=== PATIENT | female | born 1965 | race Caucasian/White ===

== ENCOUNTER 2023-08-26 14:59 | Inpatient (IN) ==
[2023-08-26] MEDS ORDERED: ZOFRAN INJ 4 MG VIAL IVP PRN (16:35)
[2023-08-26 17:02] LABS: BASOPHILS # (AUTO) 0.1 X10^3/uL (0.0-0.1); BASOPHILS % (AUTO) 0.7 % (0.2-1.0); EOSINOPHILS % (AUTO) 0.1 % (0.9-2.9); HEMOGLOBIN 14.7 g/dL (12.0-16.0); LYMPHOCYTES # (AUTO) 3.3 X10^3/uL (1.3-2.9); LYMPHOCYTES % (AUTO) 17.1 % (21.0-51.0); MEAN CORPUSCULAR HEMOGLOBIN 30.9 pg (27.0-34.0); MEAN CORPUSCULAR HGB CONC 32.6 g/dL (33.0-35.0); MEAN CORPUSCULAR VOLUME 94.8 fL (80.0-100.0); MEAN PLATELET VOLUME 8.8 fL (7.4-11.0); MONOCYTES # (AUTO) 1.4 x10^3/uL (0.3-0.8); MONOCYTES % (AUTO) 7.3 % (0.0-13.0); NEUTROPHILS # (AUTO) 14.4 x10^3/uL (2.2-4.8); NEUTROPHILS % (AUTO) 74.8 % (42.0-75.0); PLATELET COUNT 303 X10^3/uL (150.0-450.0); RED BLOOD COUNT 4.75 X10^6/uL (3.5-5.4); RED CELL DISTRIBUTION WIDTH 15.7 % (11.6-16.5); WHITE BLOOD COUNT 19.2 X10^3/uL (3.6-10.0)
[2023-08-26 17:15] LABS: ALANINE AMINOTRANSFERASE 39 Units/L (12-78); ALBUMIN 3.3 g/dL (3.4-5.0); ALKALINE PHOSPHATASE 126 Units/L (46-116); BLOOD UREA NITROGEN 32 mg/dL (7-18); CALCIUM 9.4 mg/dL (8.5-10.1); CARBON DIOXIDE 28.3 mmol/L (21-32); CHLORIDE 102 mmol/L (98-107); COR NA(FOR HYPERGLY) 140 mmol/L (136-145); CREATININE 1.06 mg/dL (0.55-1.02); GLUCOSE 186 mg/dL (65-99); MAGNESIUM 1.6 mg/dL (2.0-2.9); SODIUM 138 mmol/L (136-145); TOTAL PROTEIN 7.4 g/dL (6.4-8.2); eGFR NON BLACK RACES 57 (>60)
[2023-08-26 17:32] LABS: ASPARTATE AMINO TRANSFERASE < 6 Units/L (15-37)
[2023-08-26 17:33] VITALS: BMI 39.6
[2023-08-26] MEDS: NS 1,000 ML IV 1,000 ML IV SCH (18:24)
[2023-08-26] MEDS: ROBITUSSIN DM PO SCH (18:25)
[2023-08-26] MEDS: SOLU-Medrol 40 MG VIAL IVP SCH (18:25)
[2023-08-26] MEDS: PROTONIX INJ 40 MG VIAL IVP SCH (18:25)
[2023-08-26] MEDS: ZITHROMAX INJ 500 MG VIAL 500 MG in NS 250 ML IV 250 ML IV SCH (18:25)
[2023-08-26] MEDS: PULMICORT NEB TX 0.5 MG NEB SCH (21:32)
[2023-08-26] MEDS: DUONEB 0.5 MG/3 MG (3 mL) NEB SCH (21:32)
[2023-08-26 23:58] LABS: BILIRUBIN,URINE NEGATIVE (NEGATIVE); BLOOD/HEMOGLOBIN,URINE NEGATIVE (NEGATIVE); GLUCOSE, URINE 4+ (NEGATIVE); KETONES,URINE NEGATIVE (NEGATIVE); LEUKOCYTE ESTERASE ,URINE NEGATIVE (NEGATIVE); NITRITES,URINE NEGATIVE (NEGATIVE); PROTEIN,URINE 2+ (NEGATIVE); UROBILINOGEN,URINE NORMAL (NORMAL)
[2023-08-27 00:05] LABS: APPEARANCE,URINE CLEAR (CLEAR); BACTERIA,URINE TRACE /HPF (NEGATIVE); COLOR,URINE YELLOW (YELLOW); HYALINE CASTS, URINE FEW /LPF (NEGATIVE); RBC,URINE NONE SEEN /HPF (0-3); SQUAMOUS EPITHELIAL CELL,UR FEW /HPF (NEGATIVE)
[2023-08-27 06:29] LABS: BASOPHILS # (AUTO) 0.2 X10^3/uL (0.0-0.1); HEMATOCRIT 44.3 % (36.0-47.0); HEMOGLOBIN 14.3 g/dL (12.0-16.0); LYMPHOCYTES # (AUTO) 1.7 X10^3/uL (1.3-2.9); MEAN CORPUSCULAR HEMOGLOBIN 30.6 pg (27.0-34.0); MEAN CORPUSCULAR HGB CONC 32.4 g/dL (33.0-35.0); MEAN CORPUSCULAR VOLUME 94.6 fL (80.0-100.0); MEAN PLATELET VOLUME 9.2 fL (7.4-11.0); MONOCYTES # (AUTO) 0.4 x10^3/uL (0.3-0.8); MONOCYTES % (AUTO) 2.7 % (0.0-13.0); NEUTROPHILS # (AUTO) 13.4 x10^3/uL (2.2-4.8); NEUTROPHILS % (AUTO) 85.3 % (42.0-75.0); PLATELET COUNT 264 X10^3/uL (150.0-450.0); RED BLOOD COUNT 4.68 X10^6/uL (3.5-5.4); RED CELL DISTRIBUTION WIDTH 15.4 % (11.6-16.5); WHITE BLOOD COUNT 15.7 X10^3/uL (3.6-10.0)
[2023-08-27 06:53] LABS: ALANINE AMINOTRANSFERASE 46 Units/L (12-78); ALBUMIN 3.1 g/dL (3.4-5.0); ALKALINE PHOSPHATASE 120 Units/L (46-116); ASPARTATE AMINO TRANSFERASE 18 Units/L (15-37); BLOOD UREA NITROGEN 28 mg/dL (7-18); CALCIUM 9.2 mg/dL (8.5-10.1); CARBON DIOXIDE 24.4 mmol/L (21-32); CHLORIDE 101 mmol/L (98-107); COR CA(FOR HYPOALB) 9.9 mg/dL (8.5-10.1); COR NA(FOR HYPERGLY) 141 mmol/L (136-145); GLUCOSE 211 mg/dL (65-99); POTASSIUM 4.3 mmol/L (3.5-5.1); SODIUM 138 mmol/L (136-145); TOTAL PROTEIN 7.4 g/dL (6.4-8.2); eGFR NON BLACK RACES > 60 (>60)
--- NOTE | 2023-08-27 07:40 | RAD ---
EXAM:AP chestHISTORY:COPDCOMPARISON:08/25/2023 br.br.br.br developing pneumonia, CHF, atelectasis or pleural fluid.IMPRESSION:No change, no acute findings.THIS IS AN ELECTRONICALLY VERIFIED FINAL REPORT08/27/2023 7:37 AM - Electronically signed by Hilario Delgado MD
[2023-08-27 07:43] LABS: PLATELET MORPHOLOGY COMMENT NORMAL (NORMAL)
[2023-08-27] MEDS ORDERED: ZITHROMAX INJ 500 MG VIAL IV ONE (09:39)
[2023-08-27] MEDS: TORADOL 30 MG VIAL IVP SCH (10:54)
[2023-08-27] MEDS: SOLU-Medrol 40 MG VIAL IVP SCH (10:54)
[2023-08-27] MEDS: LEVAQUIN PREMIX IV 750 MG 750 MG/150 ML BAG IV SCH (10:54)
[2023-08-27] MEDS: FORTAZ or TAZICEF VIAL INJ 1 G in NS 100 ML IV 100 ML IV SCH (10:54)
[2023-08-27] MEDS: TUSSIONEX PENNKINETIC SUSP PO SCH (10:55)
[2023-08-27] MEDS: PULMICORT NEB TX 0.5 MG NEB ONE (10:56)
[2023-08-27] MEDS: DUONEB 0.5 MG/3 MG (3 mL) NEB ONE (10:56)
--- NOTE | 2023-08-27 18:31 | DR.H&P ---
H&P - History & Physical for Day of: H&P Date: 08/26/23 - Chief Complaint Chief Complaint: COUGH, SOB - History of Present Illness History of Present Illness: IS A 58 YEAR OLD PATIENT OF [facility]. SHE WAS A DIRECT ADMIT TO SERVICES FOR TREATMENT OF COPD EXACERBATION, ACUTE BRONCHITIS, FAILED OUTPATIENT TREATMENT. PATIENT REPORTS THAT SHE HAS TAKEN DOXYCYCLINE 100MG BID, LEVAQUIN 500MG DAILY, MEDROL DOSEPACK, TESSALON PERLES, AND NEBULIZER TREATMENTS WITHOUT IMPROVEMENT IN SYMPTOMS. HER MEDICAL HX INCLUDEHTN, COPD, ARTHRITIS, DM II, HYPOTHYROIDISM, DEPRESSION, CHOLECYSTECTOMY, NECK FUSION, BLADDER SLING. ON ARRIVAL TO THE HOSPITAL, VITALS WERE: 97.5-116-24-95%-208/98. LABS WERE OBTAINED. WBC 19.2, RBC 4.75, HGB 14.7, HCT 45.0, PLT COUNT 303, D-DIMER 0.40, SODIUM 138, POTASSIUM 4.0, CHLORIDE 102, BUN 32, CREATININE 1.06, GLUCOSE 186, CALCIUM 9.4, MAGNESIUM 1.6, TOTAL BILI 0.30, AST <6, ALT 39, ALK PHOS 126, TOTAL PROTEIN 7.4, ALBUMIN 3.3. AIT RESPIRATORY PANEL WAS SENT OFF. A URINALYSIS WAS OBTAINED AND WAS UNREMARKABLE. A CHEST XRAY WAS OBTAINED AND WAS NEGATIVE FOR ACUTE FINDINGS. ON ADMISSION, SHE WAS STARTED ON NORMAL SALINE AT 50 ML/HR, LEVAQUIN 750MG IV DAILY, FORTAZ 1G IV Q8H, DUONEBS Q4H, PULMICORT NEBS BID, TUSSIONEX 5ML Q12H, ROBITUSSIN DM 10ML QID, SOLU-MEDROL 80MG IV Q8H, TORADOL 30MG IV Q8H PRN, ZOFRAN 4MG IV Q6H PRN, PROTONIX 40MG IV DAILY. WE WILL RESUME HER HOME MEDICATIONS OF FERROUS SULFATE, CELEXA, LEVOTHYROXINE, TIZANIDINE PRN, METFORMIN, MELOXICAM. OTHERWISE, WE PLAN TO FOLLOW-UP WITH AM LABS AND CHEST XRAY AND CONTINUE TO MONITOR. TIME SPENT ON CLINICAL ASSESSMENT, REVIEWING LABS AND IMAGING, DECISION MAKING, AND DOCUMENTATION GREATER THAN 75 MINUTES. - Past Medical History Past Medical History: Arthritis, COPD, Depression, Diabetes, Hypertension, Hypothyroidism - Past Surgical History Surgical History: Cholecystectomy Additional Surgical History: NECK FUSION, BLADDER SLING - Family History Family Medical History: Cancer - Social History Type of Tobacco Use: Smokeless Alcohol Use: None Drug Use: None - Review of Systems Constitutional: Weakness Eyes: No Symptoms Reported ENT: No Symptoms Reported Respiratory: Cough, Shortness of Breath, SOB with Excertion Cardiovascular: No Symptoms Reported Gastrointestinal: No Symptoms Reported Genitourinary: No Symptoms Reported Musculoskeletal: No Symptoms Reported Skin: No Symptoms Reported Neurological: Weakness - Physical Exam Vital Signs: Vital Signs Temperature 97.7 F Temperature 97.6 F Pulse Rate [Left Radial] 92 Pulse Rate [Left Radial] 93 Respiratory Rate 22 Respiratory Rate 20 Respiratory Rate 24 Respiratory Rate 22 Respiratory Rate 22 Blood Pressure [Right Arm] 185/87 Blood Pressure [Right Arm] 178/78 O2 Sat by Pulse Oximetry 94 O2 Sat by Pulse Oximetry 91 Oriented: Normal Eyes: Normal Ear: Normal Nose: Normal Throat: Normal Respiratory: Rhonchi Throughout, Wheezes Throughout Cardiovascular: Tachycardia : Normal Auscultation: Bowel Sounds: Normal Palpation: Normal Tenderness: Normal Skin: Normal Musculoskeletal: Normal Psychiatric: Normal Mood Description: Calm Affect: Normal Speech Pattern: Clear - Assessment/Plan (1) COPD exacerbation Status: Acute Plan: ADMIT, NORMAL SALINE AT 50 ML/HR, LEVAQUIN 750MG IV DAILY, FORTAZ 1G IV Q8H, DUONEBS Q4H, PULMICORT NEBS BID, TUSSIONEX 5ML Q12H, ROBITUSSIN DM 10ML QID,SOLU-MEDROL 80MG IV Q8H, TORADOL 30MG IV Q8H PRN, ZOFRAN 4MG IV Q6H PRN, PROTONIX 40MG IV DAILY. WE WILL RESUME HER HOME MEDICATIONS OF FERROUS SULFATE, CELEXA, LEVOTHYROXINE, TIZANIDINE PRN, METFORMIN, MELOXICAM. (2) Acute bronchitis Qualifiers: Bronchitis organism: unspecified organism Qualified Code(s): J20.9 - Acute bronchitis, unspecified Status: Acute (3) Hypomagnesemia Status: Acute (4) HTN (hypertension) Qualifiers: Hypertension type: primary hypertension Qualified Code(s): I10 - Essential (primary) hypertension Status: Chronic (5) Diabetes mellitus Qualifiers: Diabetes mellitus type: type 2 Diabetes mellitus complication status: with hyperglycemia Status: Chronic (6) Hypothyroidism Qualifiers: Hypothyroidism type: acquired Qualified Code(s): E03.9 - Hypothyroidism, unspecified Status: Chronic - Allergies Allergies/Adverse Reactions: Allergies Allergy/AdvReac Type Severity Reaction Status Date / Time aspirin AdvReac Verified 08/26/23 17:34 - Medications Home Medications: Home Medications Medication Instructions Recorded Confirmed albuterol sulfate 90 mcg/actuation 1 inh inhalation Q4-6H PRN 08/26/23 08/26/23 breath activated powder inhaler benzonatate 100 mg capsule 100 mg PO TID PRN cough 08/26/23 08/26/23 budesonide 160 mcg-glycopyr 9 2 inh inhalation BID 08/26/23 08/26/23 mcg-formot 4.8 mcg/actuation HFA inhaler (Breztri Aerosphere) cholecalciferol (vitamin D3) 1,250 1,250 mcg PO QWEEK 08/26/23 08/26/23 mcg (50,000 unit) capsule citalopram 40 mg tablet (Celexa) 40 mg PO QDAY 08/26/23 08/26/23 doxycycline hyclate 100 mg capsule 100 mg PO BID 08/26/23 08/26/23 ferrous sulfate 325 mg (65 mg 325 mg PO QDAY 08/26/23 08/26/23 iron) tablet fluticasone 250 mcg-salmeterol 50 1 ea inhalation BID 08/26/23 08/26/23 mcg/dose blistr powdr for inhalation fluticasone 250 mcg-salmeterol 50 1 inh inhalation BID 08/26/23 08/26/23 mcg/dose blistr powdr for inhalation (Advair Diskus) levofloxacin 500 mg tablet 500 mg PO QDAY 08/26/23 08/26/23 levothyroxine 100 mcg tablet 100 mcg PO QDAY 08/26/23 08/26/23 meloxicam 15 mg tablet 15 mg PO QDAY 08/26/23 08/26/23 metformin 500 mg tablet 500 mg PO QDAY 08/26/23 08/26/23 methylprednisolone 4 mg tablets in 0 mg PO DIRECTED 08/26/23 08/26/23 a dose pack tizanidine 2 mg tablet 2 mg PO Q6HR 08/26/23 08/26/23
[2023-08-27] MEDS ORDERED: GLUCOPHAGE ONE (20:33)
[2023-08-27] MEDS: MOBIC TAB 15 MG PO SCH (20:40)
[2023-08-27] MEDS: GLUCOPHAGE PO SCH (20:40)
[2023-08-27] MEDS: NovoLIN R (or HumuLIN R) SUBCUT PRN (22:33)
--- NOTE | 2023-08-28 00:27 | EKG ---
Test Reason : bp Blood Pressure : */* mmHG Vent. Rate : 85 BPM Atrial Rate : 86 BPM P-R Int : 184 ms QRS Dur : 80 ms QT Int : 346 ms P-R-T Axes : 86 51 59 degrees QTc Int : 411 ms Normal sinus rhythm Normal ECG No previous ECGs available Confirmed by Thomas Stiles MD ([id number]) on 08/29/2023 7:34:56 AM Referred By: Confirmed By: Thomas Stiles MD
[2023-08-28] MEDS: CATAPRES TAB 0.1 MG PO ONE ×2 (00:34→16:45)
[2023-08-28] MEDS: APRESOLINE INJ 20 MG VIAL IVP ONE (02:58)
[2023-08-28 07:02] LABS: BASOPHILS # (AUTO) 0.1 X10^3/uL (0.0-0.1); BASOPHILS % (AUTO) 0.6 % (0.2-1.0); EOSINOPHILS % (AUTO) 0.1 % (0.9-2.9); HEMATOCRIT 38.7 % (36.0-47.0); HEMOGLOBIN 12.6 g/dL (12.0-16.0); LYMPHOCYTES # (AUTO) 1.3 X10^3/uL (1.3-2.9); LYMPHOCYTES % (AUTO) 7.9 % (21.0-51.0); MEAN CORPUSCULAR HEMOGLOBIN 30.6 pg (27.0-34.0); MEAN CORPUSCULAR HGB CONC 32.6 g/dL (33.0-35.0); MONOCYTES # (AUTO) 0.8 x10^3/uL (0.3-0.8); MONOCYTES % (AUTO) 4.8 % (0.0-13.0); NEUTROPHILS # (AUTO) 14.3 x10^3/uL (2.2-4.8); NEUTROPHILS % (AUTO) 86.6 % (42.0-75.0); PLATELET COUNT 233 X10^3/uL (150.0-450.0); RED BLOOD COUNT 4.12 X10^6/uL (3.5-5.4); RED CELL DISTRIBUTION WIDTH 15.5 % (11.6-16.5); WHITE BLOOD COUNT 16.5 X10^3/uL (3.6-10.0)
[2023-08-28 07:29] LABS: ALANINE AMINOTRANSFERASE 39 Units/L (12-78); ALBUMIN 2.6 g/dL (3.4-5.0); ALKALINE PHOSPHATASE 103 Units/L (46-116); ASPARTATE AMINO TRANSFERASE 11 Units/L (15-37); BLOOD UREA NITROGEN 40 mg/dL (7-18); CALCIUM 8.6 mg/dL (8.5-10.1); CARBON DIOXIDE 21.6 mmol/L (21-32); CHLORIDE 105 mmol/L (98-107); COR CA(FOR HYPOALB) 9.7 mg/dL (8.5-10.1); COR NA(FOR HYPERGLY) 144 mmol/L (136-145); CREATININE 1.01 mg/dL (0.55-1.02); GLUCOSE 281 mg/dL (65-99); POTASSIUM 4.2 mmol/L (3.5-5.1); SODIUM 140 mmol/L (136-145); TOTAL PROTEIN 6.1 g/dL (6.4-8.2); eGFR NON BLACK RACES 60 (>60)
[2023-08-28 08:17] LABS: PLATELET MORPHOLOGY COMMENT NORMAL (NORMAL)
--- NOTE | 2023-08-28 08:43 | RAD ---
EXAM:CHEST, 1 VIEWHISTORY:Shortness of breath.COMPARISON:08/26/2023.FINDINGS:Th e trachea is midline. The cardiac silhouette is within normal limits . The lungs are clear without focal infiltrate or effusion. The bony thorax is unremarkable. There has been previous ACDF.IMPRESSION:No acute cardiopulmonary findings.THIS IS AN ELECTRONICALLY VERIFIED FINAL REPORT08/28/2023 8:40 AM - Electronically signed by Miguel Beck MD
[2023-08-28] MEDS ORDERED: GLUCOPHAGE ONE (08:58)
[2023-08-28] MEDS: CELEXA PO SCH (09:12)
[2023-08-28] MEDS: SYNTHROID 100 mcg TAB PO SCH (09:12)
[2023-08-28] MEDS: FERROUS GLUCONATE PO SCH (09:13)
[2023-08-28] MEDS: CARDIZEM CD 120 MG 24-HR PO SCH (10:15)
[2023-08-28] MEDS: SNACK - Diabetic Appropriate PO SCH (20:00)
[2023-08-28] MEDS: TORADOL 30 MG VIAL IVP PRN (22:04)
--- NOTE | 2023-08-29 06:08 | RAD ---
EXAM:CHEST, 1 VIEWHISTORY:sob, copd;COMPARISON:Prior study or studies were utilized for comparison during interpretation with the most relevant dated 08/28/2023TECHNIQUE:CHEST, 1 VIEWFINDINGS:Chest:Lines and tubes: NoneMediastinum: Cardiac and mediastinal shadow is within normal limits for size and contour.Pulmonary vessels: No pulmonary vascular congestion.Lung davis: No suspicious airspace opacity.Pleura: No effusion. No pneumothorax.Bones and soft tissues: No acute osseous or soft tissue abnormality.IMPRESSION:1. No acute cardiopulmonary abnormalityTHIS IS AN ELECTRONICALLY VERIFIED FINAL REPORT08/29/2023 6:05 AM - Electronically signed by Vishal Corley MD
[2023-08-29 06:34] LABS: BASOPHILS # (AUTO) 0.1 X10^3/uL (0.0-0.1); BASOPHILS % (AUTO) 0.5 % (0.2-1.0); HEMATOCRIT 38.3 % (36.0-47.0); HEMOGLOBIN 12.5 g/dL (12.0-16.0); LYMPHOCYTES # (AUTO) 0.8 X10^3/uL (1.3-2.9); LYMPHOCYTES % (AUTO) 5.2 % (21.0-51.0); MEAN CORPUSCULAR HEMOGLOBIN 30.8 pg (27.0-34.0); MEAN CORPUSCULAR HGB CONC 32.6 g/dL (33.0-35.0); MEAN CORPUSCULAR VOLUME 94.4 fL (80.0-100.0); MEAN PLATELET VOLUME 9.1 fL (7.4-11.0); MONOCYTES # (AUTO) 0.6 x10^3/uL (0.3-0.8); MONOCYTES % (AUTO) 3.7 % (0.0-13.0); NEUTROPHILS # (AUTO) 14.4 x10^3/uL (2.2-4.8); NEUTROPHILS % (AUTO) 90.6 % (42.0-75.0); PLATELET COUNT 229 X10^3/uL (150.0-450.0); RED BLOOD COUNT 4.05 X10^6/uL (3.5-5.4); RED CELL DISTRIBUTION WIDTH 15.9 % (11.6-16.5); WHITE BLOOD COUNT 15.9 X10^3/uL (3.6-10.0)
[2023-08-29 06:51] LABS: ALANINE AMINOTRANSFERASE 40 Units/L (12-78); ALBUMIN 2.5 g/dL (3.4-5.0); ALKALINE PHOSPHATASE 92 Units/L (46-116); ASPARTATE AMINO TRANSFERASE 14 Units/L (15-37); BLOOD UREA NITROGEN 43 mg/dL (7-18); CARBON DIOXIDE 24.3 mmol/L (21-32); CHLORIDE 105 mmol/L (98-107); COR NA(FOR HYPERGLY) 144 mmol/L (136-145); CREATININE 1.05 mg/dL (0.55-1.02); GLUCOSE 318 mg/dL (65-99); POTASSIUM 4.4 mmol/L (3.5-5.1); SODIUM 139 mmol/L (136-145); TOTAL PROTEIN 5.9 g/dL (6.4-8.2); eGFR NON BLACK RACES 57 (>60)
[2023-08-29 06:56] LABS: CALCIUM 8.5 mg/dL (8.5-10.1); COR CA(FOR HYPOALB) 9.7 mg/dL (8.5-10.1)
[2023-08-29 07:54] LABS: PLATELET MORPHOLOGY COMMENT NORMAL (NORMAL)
[2023-08-29] MEDS ORDERED: CONSULT PHARMACY - POTASSIUM & MAGNESIUM XX SCH (08:00)
[2023-08-29] MEDS ORDERED: GLUCOPHAGE ONE (08:01)
--- NOTE | 2023-08-29 08:36 | PCM.PROG ---
Progress Note - Progress Note for Day of Date of Exam: 08/28/23 - Subjective Subjective: IS CURRENTLY OBSERVATION STATUS FOR TREATMENT OF COPD EXACERBATION, ACUTE BRONCHITIS, HYPOMAGNESEMIA. HER MEDICAL HX INCLUDES: HTN, COPD, ARTHRITIS, DM II, HYPOTHYROIDISM, DEPRESSION, CHOLECYSTECTOMY, NECK FUSION, BLADDER SLING. TODAY, SHE IS LYING IN BED WITH EYES CLOSED ON MORNING ROUNDS. SHE AWAKENS TO VERBAL STIMULI. SHE CONTINUES TO COMPLAIN OF COUGH AND SHORTNESS OF BREATH AT TIMES, BUT ADMITS TO SLIGHT IMPROVEMENT SINCE ADMISSION. ON EXAMINATION, HEART IS REGULAR IN RATE AND RHYTHM. BILATERAL LUNGS ARE NOTED WITH RHONCHI AND WHEEZING THROUGHOUT. ABDOMEN IS ROUND, SOFT, AND NON-TENDER WITH NORMAL BOWEL SOUNDS NOTED IN ALL QUADRANTS. GOOD RANGE OF MOTION NOTED TO UPPER AND LOWER EXTREMITIES WITH NO EDEMA NOTED. HER VITALS THIS MORNING ARE: 97.8-93-24-95%-193/92. LABS WERE OBTAINED. WBC 16.5, RBC 4.12, HGB 12.6, HCT 38.7, PLT COUNT 233, SODIUM 140, POTASSIUM 4.2, CHLORIDE 105, BUN 40, CREATININE 1.01, GLUCOSE 281, CALCIUM 8.6, MAGNESIUM 1.7, TOTAL BILI 0.20, AST 11, ALT 39, ALK PHOS 103, TOTAL PROTEIN 6.1, ALBUMIN 2.6. AIT RESPIRATORY PANEL IS PENDING. A CHEST XRAY WAS OBTAINED AND REVEALED: The trachea is midline. The cardiac silhouette is within normal limits . The lungs are clear without focal infiltrate or effusion. The bony thorax is unremarkable. There has been previous ACDF. SHE IS CURRENTLY RECEIVING NORMAL SALINE AT 50 ML/HR, LEVAQUIN 750MG IV DAILY, FORTAZ 1G IV Q8H, DUONEBS Q4H, PULMICORT NEBS BID, TUSSIONEX 5ML Q12H, ROBITUSSIN DM 10ML QID, SOLU-MEDROL 80MG IV Q8H, TORADOL 30MG IV Q8H PRN, ZOFRAN 4MG IV Q6H PRN, PROTONIX 40MG IV DAILY. WE WILL RESUME HER HOME MEDICATIONS OF FERROUS SULFATE, CELEXA, LEVOTHYROXINE, TIZANIDINE PRN, METFOR MIN, MELOXICAM. DUE TO ELEVATED BLOOD PRESSURE, WE WILL ADD CARDIZEM CD 120MG DAILY. OTHERWISE, WE WILL CONTINUE CURRENT PLAN OF CARE TODAY. WE WILL FOLLOW-UP WITH AM LABS AND CONTINUE TO MONITOR. TIME SPENT ON CLINICAL ASSESSMENT, REVIEWING LABS AND IMAGING, DECISION MAKING, AND DOCUMENTATION GREATER THAN 45 MINUTES. - Past Medical Family Social History Past Med/Fam/Surg Hx: No changes since H&P Allergies: Allergies aspirin Adverse Reaction (Verified 08/26/23 17:34) - Review of Systems ROS: No change since H&P - Vital Signs and I&O's Vital Signs: Vital Signs Temperature 97.9 F Pulse Rate [Left Radial] 88 Respiratory Rate 20 Blood Pressure [Right Arm] 177/82 O2 Sat by Pulse Oximetry 96 Intake and Output: Intake & Output 08/26/23 08/27/23 08/28/23 08/29/23 11:59 11:59 11:59 11:59 Intake Total 960 / 960 1931 3250 / 3250 Balance 960 / 960 1931 3250 / 3250 - Physical Exam Oriented: Normal Eyes: Normal Ear: Normal Nose: Normal Throat: Normal Respiratory: Generalized, Wheezes, Rhonchi Cardiovascular: Normal : Normal Auscultation: Bowel Sounds: Normal Tenderness: Normal Skin: Normal Musculoskeletal: Normal Psychiatric: Normal Mood Description: Calm Affect: Normal Speech Pattern: Clear, Appropriate - Laboratory and Diagnostics Result Diagrams: 08/29/23 05:40 08/29/23 05:40 Labs: Laboratory WBC 15.9 X10^3/uL (3.6-10.0) H 08/29/23 05:40 RBC 4.05 X10^6/uL (3.5-5.4) 08/29/23 05:40 Hgb 12.5 g/dL (12.0-16.0) 08/29/23 05:40 Hct 38.3 % (36.0-47.0) 08/29/23 05:40 MCV 94.4 fL (80.0-100.0) 08/29/23 05:40 MCH 30.8 pg (27.0-34.0) 08/29/23 05:40 MCHC 32.6 g/dL (33.0-35.0) L 08/29/23 05:40 RDW 15.9 % (11.6-16.5) 08/29/23 05:40 Plt Count 229 X10^3/uL (150.0-450.0) 08/29/23 05:40 Plt Count Comment Adequate (ADEQUATE) 08/29/23 05:40 MPV 9.1 fL (7.4-11.0) 08/29/23 05:40 Neut % (Auto) 90.6 % (42.0-75.0) H 08/29/23 05:40 Lymph % (Auto) 5.2 % (21.0-51.0) L 08/29/23 05:40 Clare % (Auto) 3.7 % (0.0-13.0) 08/29/23 05:40 Eos % (Auto) 0.0 % (0.9-2.9) L 08/29/23 05:40 Baso % (Auto) 0.5 % (0.2-1.0) 08/29/23 05:40 Neut # (Auto) 14.4 x10^3/uL (2.2-4.8) H 08/29/23 05:40 Lymph # (Auto) 0.8 X10^3/uL (1.3-2.9) L 08/29/23 05:40 Clare # (Auto) 0.6 x10^3/uL (0.3-0.8) 08/29/23 05:40 Eos # (Auto) 0.0 x10^3/uL (0.0-0.2) 08/29/23 05:40 Baso # (Auto) 0.1 X10^3/uL (0.0-0.1) 08/29/23 05:40 Absolute Nucleated RBC 0.0 /100WBC 08/29/23 05:40 Total Counted 100 08/29/23 05:40 Neutrophils % (Manual) 92 % (39-76) H 08/29/23 05:40 Lymphocytes % (Manual) 6 % (13-43) L 08/29/23 05:40 Monocytes % (Manual) 2 % (4-9) L 08/29/23 05:40 Plt Morphology Comment Normal (NORMAL) 08/29/23 05:40 RBC Morphology Normal (NORMAL) 08/29/23 05:40 D-Dimer 0.40 ug/ml (0.0-0.57) 08/26/23 16:52 Sodium 139 mmol/L (136-145) 08/29/23 05:40 Corrected Sodium 144 mmol/L (136-145) 08/29/23 05:40 Potassium 4.4 mmol/L (3.5-5.1) 08/29/23 05:40 Chloride 105 mmol/L (98-107) 08/29/23 05:40 Carbon Dioxide 24.3 mmol/L (21-32) 08/29/23 05:40 BUN 43 mg/dL (7-18) H 08/29/23 05:40 Creatinine 1.05 mg/dL (0.55-1.02) H 08/29/23 05:40 Est GFR (MDRD) Af Amer > 60 (>60) 08/29/23 05:40 Est GFR (MDRD) Non-Af 57 (>60) L 08/29/23 05:40 Glucose 318 mg/dL (65-99) H 08/29/23 05:40 POC Glucose (mg/dL) 283 mg/dL (65-99) H 08/29/23 06:20 Calcium 8.5 mg/dL (8.5-10.1) 08/29/23 05:40 Corrected Calcium 9.7 mg/dL (8.5-10.1) 08/29/23 05:40 Magnesium 1.7 mg/dL (2.0-2.9) L 08/29/23 05:40 Total Bilirubin 0.20 mg/dL (0.2-1.0) 08/29/23 05:40 AST 14 Units/L (15-37) L 08/29/23 05:40 ALT 40 Units/L (12-78) 08/29/23 05:40 Alkaline Phosphatase 92 Units/L (46-116) 08/29/23 05:40 B-Natriuretic Peptide 70.5 pg/mL (0-79) 08/26/23 16:52 Total Protein 5.9 g/dL (6.4-8.2) L 08/29/23 05:40 Albumin 2.5 g/dL (3.4-5.0) L 08/29/23 05:40 Globulin 3.4 g/dL (2.5-4.5) 08/29/23 05:40 Albumin/Globulin Ratio 0.7 Ratio (1.1-2.1) L 08/29/23 05:40 Specimen Type Clean catch urine 08/26/23 23:53 Urine Color Yellow (YELLOW) 08/26/23 23:53 Urine Appearance Clear (CLEAR) 08/26/23 23:53 Urine pH 5.0 (5.0 - 8.0) 08/26/23 23:53 Ur Specific [place] 1.020 (1.000-1.030) 08/26/23 23:53 Urine Protein 2+ (NEGATIVE) 08/26/23 23:53 Urine Glucose (UA) 4+ (NEGATIVE) 08/26/23 23:53 Urine Ketones Negative (NEGATIVE) 08/26/23 23:53 Urine Blood Negative (NEGATIVE) 08/26/23 23:53 Urine Nitrite Negative (NEGATIVE) 08/26/23 23:53 Urine Bilirubin Negative (NEGATIVE) 08/26/23 23:53 Urine Urobilinogen Normal (NORMAL) 08/26/23 23:53 Ur Leukocyte Esterase Negative (NEGATIVE) 08/26/23 23:53 Urine RBC None seen /HPF (0-3) 08/26/23 23:53 Urine WBC 0-2 /HPF (0-5) 08/26/23 23:53 Ur Squamous Epith Cells Few /HPF (NEGATIVE) 08/26/23 23:53 Urine Bacteria Trace /HPF (NEGATIVE) 08/26/23 23:53 Hyaline Casts Few /LPF (NEGATIVE) 08/26/23 23:53 Urine Mucus Rare /HPF (NEGATIVE) 08/26/23 23:53 Ur Culture Indicated? No/not indicated 08/26/23 23:53 - Plan (1) COPD exacerbation Status: Acute Plan: NORMAL SALINE AT 50 ML/HR, LEVAQUIN 750MG IV DAILY, FORTAZ 1G IV Q8H, DUONEBS Q4H, PULMICORT NEBS BID, TUSSIONEX 5ML Q12H, ROBITUSSIN DM 10ML QID,SOLU-MEDROL 80MG IV Q8H, TORADOL 30MG IV Q8H PRN, CARDIZEM CD 120MG DAILY, ZOFRAN 4MG IV Q6H PRN, PROTONIX 40MG IV DAILY. WE WILL RESUME HER HOME MEDICATIONS OF FERROUS SULFATE, CELEXA, LEVOTHYROXINE, TIZANIDINE PRN, METFORMIN, MELOXICAM. (2) Acute bronchitis Status: Acute Qualifiers: Bronchitis organism: unspecified organism Qualified Code(s): J20.9 - Acute bronchitis, unspecified (3) Hypomagnesemia Status: Acute (4) HTN (hypertension) Status: Chronic Qualifiers: Hypertension type: primary hypertension Qualified Code(s): I10 - Essential (primary) hypertension (5) Diabetes mellitus Status: Chronic Qualifiers: Diabetes mellitus type: type 2 Diabetes mellitus complication status: with hyperglycemia (6) Hypothyroidism Status: Chronic Qualifiers: Hypothyroidism type: acquired Qualified Code(s): E03.9 - Hypothyroidism, unspecified
[2023-08-29 09:41] LABS: ABG BASE EXCESS -1.3 mmol/L (-2.0-2.0); ABG HCO3 23.7 mmol/L (22-26)
[2023-08-29] MEDS: NS 100 ML IV 100 ML ONE (10:37)
[2023-08-29] MEDS: OMNIPAQUE 350 mg/mL 100 mL BTL 100 ML ONE (10:37)
[2023-08-29] MEDS: NS 1,000 ML IV 1,000 ML with MAGNESIUM SULFATE 50% INJ VIAL 2 G IV SCH (10:57)
[2023-08-29] MEDS: LOVENOX INJ 40 MG SYR SC SCH (11:04)
[2023-08-29] MEDS: CATAPRES TAB 0.1 MG ONE (11:06)
[2023-08-29] MEDS: ZANAFLEX PO PRN (11:06)
[2023-08-29] MEDS: CATAPRES TAB 0.1 MG PO ONE (11:35)
--- NOTE | 2023-08-29 11:42 | CT ---
EXAM:CT CHEST WITH CONTRASTHISTORY:SHORTNESS OF BREATH; COPDCOMPARISON:CT chest August 23, 2023.TECHNIQUE:Axial CT images were obtained through the chest after the intravenous administration of contrast. Coronal reformatted images were included.Informed written consent was obtained prior to contrast administration.All CT scans at this facility use dose modulation, iterative reconstruction, and/or weight based dosing when appropriate to reduce radiation dose to as low as reasonably achievable.FINDINGS:SUPPORT DEVICES: NoneHEART, VESSELS, AND MEDIASTINUM: Within normal limits.LYMPH NODES: No pathologically enlarged nodes.LUNGS AND PLEURA: Lungs show severe emphysema. Mild thickening of the central airways particularly in the right lower lobe which may favor an element of bronchitis.AIRWAYS: Within normal limits.UPPER ABDOMEN: Within normal limits.BONES: Within normal limits.IMPRESSION:Moderate to severe emphysema. Possible reactive airways disease/bronchitis, worst in the right lower lobe.THIS IS AN ELECTRONICALLY VERIFIED FINAL REPORT08/29/2023 11:39 AM - Electronically signed by Ap Douglas MD
[2023-08-29] MEDS: SOLU-Medrol 40 MG VIAL IVP SCH (21:20)
[2023-08-30] MEDS: NICOTINE PATCH TD SCH (00:17)
[2023-08-30] MEDS: GLUCOPHAGE ONE (00:18)
[2023-08-30] MEDS: GLUCOPHAGE PO SCH (00:18)
[2023-08-30 06:50] LABS: BASOPHILS # (AUTO) 0.1 X10^3/uL (0.0-0.1); BASOPHILS % (AUTO) 0.6 % (0.2-1.0); EOSINOPHILS % (AUTO) 0.1 % (0.9-2.9); HEMATOCRIT 38.2 % (36.0-47.0); HEMOGLOBIN 12.3 g/dL (12.0-16.0); LYMPHOCYTES # (AUTO) 0.9 X10^3/uL (1.3-2.9); LYMPHOCYTES % (AUTO) 6.1 % (21.0-51.0); MEAN CORPUSCULAR HEMOGLOBIN 30.8 pg (27.0-34.0); MEAN CORPUSCULAR HGB CONC 32.2 g/dL (33.0-35.0); MEAN CORPUSCULAR VOLUME 95.4 fL (80.0-100.0); MEAN PLATELET VOLUME 9.5 fL (7.4-11.0); MONOCYTES # (AUTO) 0.8 x10^3/uL (0.3-0.8); MONOCYTES % (AUTO) 5.1 % (0.0-13.0); NEUTROPHILS # (AUTO) 13.1 x10^3/uL (2.2-4.8); NEUTROPHILS % (AUTO) 88.1 % (42.0-75.0); PLATELET COUNT 223 X10^3/uL (150.0-450.0); RED CELL DISTRIBUTION WIDTH 15.9 % (11.6-16.5); WHITE BLOOD COUNT 14.8 X10^3/uL (3.6-10.0)
[2023-08-30 07:01] LABS: ALANINE AMINOTRANSFERASE 44 Units/L (12-78); ALBUMIN 2.4 g/dL (3.4-5.0); ALKALINE PHOSPHATASE 84 Units/L (46-116); ASPARTATE AMINO TRANSFERASE 22 Units/L (15-37); BLOOD UREA NITROGEN 38 mg/dL (7-18); CALCIUM 8.5 mg/dL (8.5-10.1); CHLORIDE 105 mmol/L (98-107); COR CA(FOR HYPOALB) 9.8 mg/dL (8.5-10.1); COR NA(FOR HYPERGLY) 142 mmol/L (136-145); CREATININE 0.84 mg/dL (0.55-1.02); GLUCOSE 231 mg/dL (65-99); SODIUM 139 mmol/L (136-145); TOTAL PROTEIN 5.8 g/dL (6.4-8.2); eGFR NON BLACK RACES > 60 (>60)
[2023-08-30 07:15] LABS: POTASSIUM 4.6 mmol/L (3.5-5.1)
--- NOTE | 2023-08-30 07:24 | RAD ---
EXAM:Portable chestHISTORY:Shortness of breathCOMPARISON:08/29/2023 chest x-ray and CT chestFINDINGS:Heart size is normal. Savi are normal. Lungs are mildly hyperinflated but free of acute infiltrates. There are some emphysematous changes in the upper lobes. No pleural effusions are identified. Bony thorax is unremarkable.IMPRESSION:Emphysematous COPDNo acute infiltratesTHIS IS AN ELECTRONICALLY VERIFIED FINAL REPORT08/30/2023 7:21 AM - Electronically signed by Tio Armas MD
[2023-08-30] MEDS ORDERED: GLUCOPHAGE ONE (07:25)
[2023-08-30] MEDS: NS 1,000 ML IV 1,000 ML with MAGNESIUM SULFATE 50% INJ VIAL 1 G IV SCH (08:39)
[2023-08-30] MEDS: ZESTRIL TAB 5 MG PO SCH (11:32)
[2023-08-30 20:20] VITALS: RESP 20
[2023-08-30] MEDS: CATAPRES TAB 0.1 MG PO ONE (21:04)
[2023-08-30] MEDS: TESSALON PERLES PO PRN (21:05)
[2023-08-31 05:57] LABS: BASOPHILS % (AUTO) 0.3 % (0.2-1.0); HEMATOCRIT 40.1 % (36.0-47.0); HEMOGLOBIN 12.7 g/dL (12.0-16.0); LYMPHOCYTES # (AUTO) 0.6 X10^3/uL (1.3-2.9); LYMPHOCYTES % (AUTO) 4.5 % (21.0-51.0); MEAN CORPUSCULAR HEMOGLOBIN 30.4 pg (27.0-34.0); MEAN CORPUSCULAR HGB CONC 31.7 g/dL (33.0-35.0); MEAN CORPUSCULAR VOLUME 95.7 fL (80.0-100.0); MEAN PLATELET VOLUME 9.2 fL (7.4-11.0); MONOCYTES # (AUTO) 0.5 x10^3/uL (0.3-0.8); MONOCYTES % (AUTO) 3.9 % (0.0-13.0); NEUTROPHILS # (AUTO) 11.2 x10^3/uL (2.2-4.8); NEUTROPHILS % (AUTO) 91.3 % (42.0-75.0); PLATELET COUNT 209 X10^3/uL (150.0-450.0); RED BLOOD COUNT 4.19 X10^6/uL (3.5-5.4); RED CELL DISTRIBUTION WIDTH 15.9 % (11.6-16.5); WHITE BLOOD COUNT 12.2 X10^3/uL (3.6-10.0)
--- NOTE | 2023-08-31 06:05 | RAD ---
EXAM:CHEST, 1 VIEWHISTORY:SOB; HTN, COPD, DM SX: DIANE, NECK FUSIONCOMPARISON:08/30/2023FINDINGS:The cardiomediastinal silhouette is stable.Chronic interstitial changes in the lungs. No acute airspace disease. No pneumothorax or effusion.No acute osseous abnormality. ACDF hardware.IMPRESSION:No acute cardiopulmonary disease.THIS IS AN ELECTRONICALLY VERIFIED FINAL REPORT08/31/2023 6:02 AM - Electronically signed by Tio Armas MD
[2023-08-31 06:20] LABS: ALANINE AMINOTRANSFERASE 50 Units/L (12-78); ALBUMIN 2.4 g/dL (3.4-5.0); ALKALINE PHOSPHATASE 83 Units/L (46-116); ASPARTATE AMINO TRANSFERASE 17 Units/L (15-37); BLOOD UREA NITROGEN 32 mg/dL (7-18); CALCIUM 8.1 mg/dL (8.5-10.1); CARBON DIOXIDE 25.1 mmol/L (21-32); CHLORIDE 104 mmol/L (98-107); COR CA(FOR HYPOALB) 9.4 mg/dL (8.5-10.1); COR NA(FOR HYPERGLY) 144 mmol/L (136-145); GLUCOSE 320 mg/dL (65-99); POTASSIUM 4.2 mmol/L (3.5-5.1); SODIUM 139 mmol/L (136-145); TOTAL PROTEIN 5.5 g/dL (6.4-8.2); eGFR NON BLACK RACES > 60 (>60)
[2023-08-31 06:54] LABS: BAND NEUTROPHILS % 2 % (0-10); PLATELET MORPHOLOGY COMMENT NORMAL (NORMAL)
[2023-08-31] MEDS: GLUCOPHAGE ONE (09:48)
[2023-08-31 09:49] VITALS: O2SAT 98
[2023-08-31 10:45] VITALS: BP 127/69; PULSE 96; TEMP 97.4
--- NOTE | 2023-08-31 13:11 | PCM.DCPLAN ---
DISCHARGE SUMMARY Admission Date Date of Admission: 08/26/23 Discharge Date Discharge Date: 08/31/23 Admission Diagnoses (1) COPD exacerbation: Status: Acute (2) Acute bronchitis: Status: Acute (3) Hypomagnesemia: Status: Acute (4) HTN (hypertension): Status: Chronic (5) Diabetes mellitus: Status: Chronic (6) Hypothyroidism: Status: Chronic Discharge Diagnoses Discharge Diagnosis: Same as admission, resolved hypomagnesemia Discharge Medications Discharge Medications: Home Medication List albuterol sulfate 90 mcg/actuation breath activated powder inhaler 1 inh inhalation Q4-6H PRN 08/26/23 [History] benzonatate 100 mg capsule 100 mg PO TID PRN cough 08/26/23 [History] budesonide 160 mcg-glycopyr 9 mcg-formot 4.8 mcg/actuation HFA inhaler (Breztri Aerosphere) 2 inh inhalation BID 08/26/23 [History] cholecalciferol (vitamin D3) 1,250 mcg (50,000 unit) capsule 1,250 mcg PO QWEEK 08/26/23 [History] citalopram 40 mg tablet (Celexa) 40 mg PO QDAY 08/26/23 [History] doxycycline hyclate 100 mg capsule 100 mg PO BID 08/26/23 [History] ferrous sulfate 325 mg (65 mg iron) tablet 325 mg PO QDAY 08/26/23 [History] fluticasone 250 mcg-salmeterol 50 mcg/dose blistr powdr for inhalation 1 ea inhalation BID 08/26/23 [History] fluticasone 250 mcg-salmeterol 50 mcg/dose blistr powdr for inhalation (Advair Diskus) 1 inh inhalation BID 08/26/23 [History] levofloxacin 500 mg tablet 500 mg PO QDAY 08/26/23 [History] levothyroxine 100 mcg tablet 100 mcg PO QDAY 08/26/23 [History] meloxicam 15 mg tablet 15 mg PO QDAY 08/26/23 [History] metformin 500 mg tablet 500 mg PO QDAY 08/26/23 [History] methylprednisolone 4 mg tablets in a dose pack 0 mg PO DIRECTED 08/26/23 [History] tizanidine 2 mg tablet 2 mg PO Q6HR 08/26/23 [History] azithromycin 250 mg tablet (Zithromax Z-Carlos) 500 mg PO ONCE #7 tabs 08/31/23 [Rx] ipratropium 0.5 mg-albuterol 3 mg (2.5 mg base)/3 mL nebulization soln 3 ml inhalation Q4H PRN #30 mL 08/31/23 [Rx] lisinopril 5 mg tablet 5 mg PO QDAY #30 tabs 08/31/23 [Rx] prednisone 20 mg tablet 20 mg PO QDAY #9 tabs 08/31/23 [Rx] Prescriptions: azithromycin [Zithromax Z-Carlos] SIDHU,KIM ipratropium-albuterol [facility] lisinopril S[facility]HU,[facility] prednisone SIDHU,[facility] Hospital Course Vital Signs: Vital Signs Temperature 97.7 F Pulse Rate [Left Radial] 79 Pulse Rate 86 Pulse Rate 80 Respiratory Rate 20 Blood Pressure [Right Arm] 151/67 O2 Sat by Pulse Oximetry 98 O2 Sat by Pulse Oximetry 96 O2 Sat by Pulse Oximetry 96 Latest Lab Results: Laboratory Last Values WBC 12.2 X10^3/uL (3.6-10.0) H 08/31/23 05:16 RBC 4.19 X10^6/uL (3.5-5.4) 08/31/23 05:16 Hgb 12.7 g/dL (12.0-16.0) 08/31/23 05:16 Hct 40.1 % (36.0-47.0) 08/31/23 05:16 MCV 95.7 fL (80.0-100.0) 08/31/23 05:16 MCH 30.4 pg (27.0-34.0) 08/31/23 05:16 MCHC 31.7 g/dL (33.0-35.0) L 08/31/23 05:16 RDW 15.9 % (11.6-16.5) 08/31/23 05:16 Plt Count 209 X10^3/uL (150.0-450.0) 08/31/23 05:16 Plt Count Comment Adequate (ADEQUATE) 08/31/23 05:16 MPV 9.2 fL (7.4-11.0) 08/31/23 05:16 Neut % (Auto) 91.3 % (42.0-75.0) H 08/31/23 05:16 Lymph % (Auto) 4.5 % (21.0-51.0) L 08/31/23 05:16 [place] % (Auto) 3.9 % (0.0-13.0) 08/31/23 05:16 Eos % (Auto) 0.0 % (0.9-2.9) L 08/31/23 05:16 Baso % (Auto) 0.3 % (0.2-1.0) 08/31/23 05:16 Neut # (Auto) 11.2 x10^3/uL (2.2-4.8) H 08/31/23 05:16 Lymph # (Auto) 0.6 X10^3/uL (1.3-2.9) L 08/31/23 05:16 [place] # (Auto) 0.5 x10^3/uL (0.3-0.8) 08/31/23 05:16 Eos # (Auto) 0.0 x10^3/uL (0.0-0.2) 08/31/23 05:16 Baso # (Auto) 0.0 X10^3/uL (0.0-0.1) 08/31/23 05:16 Absolute Nucleated RBC 0.0 /100WBC 08/31/23 05:16 Total Counted 100 08/31/23 05:16 Neutrophils % (Manual) 90 % (39-76) H 08/31/23 05:16 Band Neutrophils % 2 % (0-10) 08/31/23 05:16 Lymphocytes % (Manual) 7 % (13-43) L 08/31/23 05:16 Monocytes % (Manual) 1 % (4-9) L 08/31/23 05:16 Plt Morphology Comment Normal (NORMAL) 08/31/23 05:16 RBC Morphology Normal (NORMAL) 08/31/23 05:16 D-Dimer 0.40 ug/ml (0.0-0.57) 08/26/23 16:52 Sample Site Rb 08/29/23 09:36 ABG pH 7.380 (7.35-7.45) 08/29/23 09:36 ABG pCO2 40.0 mmHg (35.0-45.0) 08/29/23 09:36 ABG pO2 58.0 mmHg (80.0-100.0) L 08/29/23 09:36 ABG HCO3 23.7 mmol/L (22-26) 08/29/23 09:36 ABG O2 Saturation 89.0 % (90-100) L 08/29/23 09:36 ABG Base Excess -1.3 mmol/L (-2.0-2.0) 08/29/23 09:36 Greg Test Na 08/29/23 09:36 A-a Gradient 42.0 mmHg 08/29/23 09:36 FiO2 21.0 08/29/23 09:36 Blood Gas Comments Tarun well, gmb 08/29/23 09:36 Sodium 139 mmol/L (136-145) 08/31/23 05:16 Corrected Sodium 144 mmol/L (136-145) 08/31/23 05:16 Potassium 4.2 mmol/L (3.5-5.1) 08/31/23 05:16 Chloride 104 mmol/L (98-107) 08/31/23 05:16 Carbon Dioxide 25.1 mmol/L (21-32) 08/31/23 05:16 BUN 32 mg/dL (7-18) H 08/31/23 05:16 Creatinine 1.00 mg/dL (0.55-1.02) 08/31/23 05:16 Est GFR (MDRD) Af Amer > 60 (>60) 08/31/23 05:16 Est GFR (MDRD) Non-Af > 60 (>60) 08/31/23 05:16 Glucose 320 mg/dL (65-99) H 08/31/23 05:16 POC Glucose (mg/dL) 334 mg/dL (65-99) H 08/31/23 05:08 Calcium 8.1 mg/dL (8.5-10.1) L 08/31/23 05:16 Corrected Calcium 9.4 mg/dL (8.5-10.1) 08/31/23 05:16 Magnesium 2.3 mg/dL (2.0-2.9) 08/30/23 05:43 Total Bilirubin 0.30 mg/dL (0.2-1.0) 08/31/23 05:16 AST 17 Units/L (15-37) 08/31/23 05:16 ALT 50 Units/L (12-78) 08/31/23 05:16 Alkaline Phosphatase 83 Units/L (46-116) 08/31/23 05:16 B-Natriuretic Peptide 70.5 pg/mL (0-79) 08/26/23 16:52 Total Protein 5.5 g/dL (6.4-8.2) L 08/31/23 05:16 Albumin 2.4 g/dL (3.4-5.0) L 08/31/23 05:16 Globulin 3.1 g/dL (2.5-4.5) 08/31/23 05:16 Albumin/Globulin Ratio 0.8 Ratio (1.1-2.1) L 08/31/23 05:16 Specimen Type Clean catch urine 08/26/23 23:53 Urine Color Yellow (YELLOW) 08/26/23 23:53 Urine Appearance Clear (CLEAR) 08/26/23 23:53 Urine pH 5.0 (5.0 - 8.0) 08/26/23 23:53 Ur Specific [place] 1.020 (1.000-1.030) 08/26/23 23:53 Urine Protein 2+ (NEGATIVE) 08/26/23 23:53 Urine Glucose (UA) 4+ (NEGATIVE) 08/26/23 23:53 Urine Ketones Negative (NEGATIVE) 08/26/23 23:53 Urine Blood Negative (NEGATIVE) 08/26/23 23:53 Urine Nitrite Negative (NEGATIVE) 08/26/23 23:53 Urine Bilirubin Negative (NEGATIVE) 08/26/23 23:53 Urine Urobilinogen Normal (NORMAL) 08/26/23 23:53 Ur Leukocyte Esterase Negative (NEGATIVE) 08/26/23 23:53 Urine RBC None seen /HPF (0-3) 08/26/23 23:53 Urine WBC 0-2 /HPF (0-5) 08/26/23 23:53 Ur Squamous Epith Cells Few /HPF (NEGATIVE) 08/26/23 23:53 Urine Bacteria Trace /HPF (NEGATIVE) 08/26/23 23:53 Hyaline Casts Few /LPF (NEGATIVE) 08/26/23 23:53 Urine Mucus Rare /HPF (NEGATIVE) 08/26/23 23:53 Ur Culture Indicated? No/not indicated 08/26/23 23:53 Resp Viral Panel (PCR) See scanned report 08/26/23 16:41 Hospital Course: IS A 58 YEAR OLD PATIENT OF [facility]. SHE WAS A DIRECT ADMIT TO SERVICES FOR TREATMENT OF COPD EXACERBATION, ACUTE BRONCHITIS, FAILED OUTPATIENT TREATMENT. HER PAST MEDICAL HX INCLUDES: HTN, COPD, ARTHRITIS, DM II, HYPOTHYROIDISM, DEPRESSION, CHOLECYSTECTOMY, NECK FUSION, BLADDER SLING. MORNING CHEST XRAY WAS CLEAR. HER VITALS ARE: 97.4-96-20-97%-127/69. MORNING LABS WERE OBTAINED. WBC 12.2, HGB 12.7, BUN 32, CREATININE 1.00. SHE HAS BEEN TREATED WITH IV HYDRATION, IV ANTIBIOTICS, DUONEBS/PULMICORT NEBS, TUSSIONEX 5ML Q12H, ROBITUSSIN DM 10ML QID, SOLU-MEDROL 40MG IV Q12H, PROTONIX 40MG IV DAILY. SHE HAS CONTINUED ON HER HOME MEDICATIONS OF FERROUS SULFATE, CELEXA, LEVOTHYROXINE, TIZANIDINE PRN, METFORMIN, MELOXICAM. UPON ADMISSION, WE OBTAINED A RESPIRATORY SWAB, WHICH RESULTED YESTERDAY WITH CORONAVIRUS (229E, NL63, OC43, AND HKU1), HUMAN METAPNEUMOVIRUS, RHINOVIRUS/ENTEROVIRUS. DURING STAY, HER BLOOD PRESSURE HAS BEEN ELEVATED AND SHE WAS STARTED ON CARDIZEM 120MG. HER BLOOD PRESSURE REMAINED ELEVATED SO WE ADDED LISINOPRIL YESTERDAY. BLOOD PRESSURE HAS BEEN IMPROVED- 127/69 THIS MORNING. OVERALL, PT CONDITION HAS IMPROVED AND PATIENT REPORTS THAT SHE IS FEELING MUCH BETTER. WE WILL ALLOW HER TO DISCHARGE HOME ON SUPPLEMENTAL O2. SHE HAS AN APPOINTMENT WITH PULMONARY IN 2 WEEKS AND WE ENCOURAGED HER TO KEEP THIS APPOINTMENT AND ENCOUARGED SMOKING CESSATION. PLEASE SEE DISCHARGE PLAN FOR LIST OF DISCHARGE MEDICATIONS AND MODIFICATIONS THAT WE MADE, ELECTRONIC MEDICAL RECORD FOR DIAGNOSTIC TESTS AND LABS. SHE WILL NEED TO FOLLOW UP WITH HER PRIMARY CARE PROVIDER, HILDA PADILLA ON 09/06/23 AT 3PM. THE PATIENT WAS INSTRUCTED TO RETURN TO THE ER IF CONDITION CHANGED OR WORSENED UNEXPECTEDLY.
--- NOTE | 2023-08-31 13:11 | PCM.PROG ---
Progress Note Progress Note for Day of Date of Exam: 08/30/23 Subjective Subjective: IS A 58 YEAR OLD PATIENT OF [facility]. SHE WAS A DIRECT ADMIT TO SERVICES FOR TREATMENT OF COPD EXACERBATION, ACUTE BRONCHITIS, FAILED OUTPATIENT TREATMENT. HER PAST MEDICAL HX INCLUDES: HTN, COPD, ARTHRITIS, DM II, HYPOTHYROIDISM, DEPRESSION, CHOLECYSTECTOMY, NECK FUSION, BLADDER SLING. SHE CONTINUES TO COMPLAIN OF COUGH AND INTERMITTENT SHORTNESS OF BREATH, BUT STATES IMPROVED SOME SINCE ADMISSION. MORNING CHEST XRAY SHOWED EMPHYSEMATOUS COPD. NO ACUTE INFILTRATES. HER VITALS ARE: 97.8-93-22-93%-178/80. MORNING LABS WERE OBTAINED. WBC 14.8, HGB 12.3, BUN 38, CREATININE 0.84, MAGNESIUM 2.3. SHE IS CURRENTLY RECEIVING IV HYDRATION, IV ANTIBIOTICS, DUONEBS/PULMICORT NEBS, TUSSIONEX 5ML Q12H, ROBITUSSIN DM 10ML QID, SOLU-MEDROL 40MG IV Q12H, PROTONIX 40MG IV DAILY. SHE CONTINUES ON HER HOME MEDICATIONS OF FERROUS SULFATE, CELEXA, LEVOTHYROXINE, TIZANIDINE PRN, METFORMIN, MELOXICAM. DURING STAY, HER BLOOD PRESSURE HAS BEEN ELEVATED AND SHE WAS STARTED ON CARDIZEM 120MG. HER BLOOD PRESSURE HAS REMAINED ELEVATED SO WE ADDED LISINOPRIL THIS MORNING. Past Medical Family Social History Past Med/Fam/Surg Hx: No changes since H&P Allergies: Allergies aspirin Adverse Reaction (Verified 08/26/23 17:34) Review of Systems ROS: No change since H&P Vital Signs and I&O's Vital Signs: Vital Signs Temperature 98.1 F Temperature 97.8 F Pulse Rate [Left Radial] 77 Pulse Rate [Left Radial] 79 Pulse Rate 74 Respiratory Rate 22 Respiratory Rate 20 Respiratory Rate 19 Blood Pressure [Right Arm] 160/90 Blood Pressure [Right Arm] 132/60 O2 Sat by Pulse Oximetry 96 O2 Sat by Pulse Oximetry 98 O2 Sat by Pulse Oximetry 98 Intake and Output: Intake & Output 08/28/23 08/29/23 08/30/23 08/31/23 11:59 11:59 11:59 11:59 Intake Total 1931 3250 / 3250 2550 / 2550 843 / 843 Balance 1931 3250 / 3250 2550 / 2550 843 / 843 Physical Exam Oriented: Normal Eyes: Normal Ear: Normal Nose: Normal Throat: Normal Respiratory: Generalized, Wheezes and Rhonchi Cardiovascular: Normal : Normal Auscultation: Bowel Sounds: Normal Tenderness: Normal Skin: Normal Musculoskeletal: Normal Psychiatric: Normal Mood Description: Calm Affect: Normal Speech Pattern: Clear and Appropriate Laboratory and Diagnostics 08/31/23 05:16 08/31/23 05:16 Labs: Laboratory WBC 14.8 X10^3/uL (3.6-10.0) H 08/30/23 05:43 RBC 4.00 X10^6/uL (3.5-5.4) 08/30/23 05:43 Hgb 12.3 g/dL (12.0-16.0) 08/30/23 05:43 Hct 38.2 % (36.0-47.0) 08/30/23 05:43 MCV 95.4 fL (80.0-100.0) 08/30/23 05:43 MCH 30.8 pg (27.0-34.0) 08/30/23 05:43 MCHC 32.2 g/dL (33.0-35.0) L 08/30/23 05:43 RDW 15.9 % (11.6-16.5) 08/30/23 05:43 Plt Count 223 X10^3/uL (150.0-450.0) 08/30/23 05:43 Plt Count Comment Adequate (ADEQUATE) 08/29/23 05:40 MPV 9.5 fL (7.4-11.0) 08/30/23 05:43 Neut % (Auto) 88.1 % (42.0-75.0) H 08/30/23 05:43 Lymph % (Auto) 6.1 % (21.0-51.0) L 08/30/23 05:43 [place] % (Auto) 5.1 % (0.0-13.0) 08/30/23 05:43 Eos % (Auto) 0.1 % (0.9-2.9) L 08/30/23 05:43 Baso % (Auto) 0.6 % (0.2-1.0) 08/30/23 05:43 Neut # (Auto) 13.1 x10^3/uL (2.2-4.8) H 08/30/23 05:43 Lymph # (Auto) 0.9 X10^3/uL (1.3-2.9) L 08/30/23 05:43 [place] # (Auto) 0.8 x10^3/uL (0.3-0.8) 08/30/23 05:43 Eos # (Auto) 0.0 x10^3/uL (0.0-0.2) 08/30/23 05:43 Baso # (Auto) 0.1 X10^3/uL (0.0-0.1) 08/30/23 05:43 Absolute Nucleated RBC 0.0 /100WBC 08/30/23 05:43 Total Counted 100 08/29/23 05:40 Neutrophils % (Manual) 92 % (39-76) H 08/29/23 05:40 Lymphocytes % (Manual) 6 % (13-43) L 08/29/23 05:40 Monocytes % (Manual) 2 % (4-9) L 08/29/23 05:40 Plt Morphology Comment Normal (NORMAL) 08/29/23 05:40 RBC Morphology Normal (NORMAL) 08/29/23 05:40 D-Dimer 0.40 ug/ml (0.0-0.57) 08/26/23 16:52 Sample Site Rb 08/29/23 09:36 ABG pH 7.380 (7.35-7.45) 08/29/23 09:36 ABG pCO2 40.0 mmHg (35.0-45.0) 08/29/23 09:36 ABG pO2 58.0 mmHg (80.0-100.0) L 08/29/23 09:36 ABG HCO3 23.7 mmol/L (22-26) 08/29/23 09:36 ABG O2 Saturation 89.0 % (90-100) L 08/29/23 09:36 ABG Base Excess -1.3 mmol/L (-2.0-2.0) 08/29/23 09:36 Greg Test Na 08/29/23 09:36 A-a Gradient 42.0 mmHg 08/29/23 09:36 FiO2 21.0 08/29/23 09:36 Blood Gas Comments Tarun well, gmb 08/29/23 09:36 Sodium 139 mmol/L (136-145) 08/30/23 05:43 Corrected Sodium 142 mmol/L (136-145) 08/30/23 05:43 Potassium 4.6 mmol/L (3.5-5.1) 08/30/23 05:43 Chloride 105 mmol/L (98-107) 08/30/23 05:43 Carbon Dioxide 25.0 mmol/L (21-32) 08/30/23 05:43 BUN 38 mg/dL (7-18) H 08/30/23 05:43 Creatinine 0.84 mg/dL (0.55-1.02) 08/30/23 05:43 Est GFR (MDRD) Af Amer > 60 (>60) 08/30/23 05:43 Est GFR (MDRD) Non-Af > 60 (>60) 08/30/23 05:43 Glucose 231 mg/dL (65-99) H 08/30/23 05:43 POC Glucose (mg/dL) 230 mg/dL (65-99) H 08/30/23 16:10 Calcium 8.5 mg/dL (8.5-10.1) 08/30/23 05:43 Corrected Calcium 9.8 mg/dL (8.5-10.1) 08/30/23 05:43 Magnesium 2.3 mg/dL (2.0-2.9) 08/30/23 05:43 Total Bilirubin 0.30 mg/dL (0.2-1.0) 08/30/23 05:43 AST 22 Units/L (15-37) 08/30/23 05:43 ALT 44 Units/L (12-78) 08/30/23 05:43 Alkaline Phosphatase 84 Units/L (46-116) 08/30/23 05:43 B-Natriuretic Peptide 70.5 pg/mL (0-79) 08/26/23 16:52 Total Protein 5.8 g/dL (6.4-8.2) L 08/30/23 05:43 Albumin 2.4 g/dL (3.4-5.0) L 08/30/23 05:43 Globulin 3.4 g/dL (2.5-4.5) 08/30/23 05:43 Albumin/Globulin Ratio 0.7 Ratio (1.1-2.1) L 08/30/23 05:43 Specimen Type Clean catch urine 08/26/23 23:53 Urine Color Yellow (YELLOW) 08/26/23 23:53 Urine Appearance Clear (CLEAR) 08/26/23 23:53 Urine pH 5.0 (5.0 - 8.0) 08/26/23 23:53 Ur Specific [place] 1.020 (1.000-1.030) 08/26/23 23:53 Urine Protein 2+ (NEGATIVE) 08/26/23 23:53 Urine Glucose (UA) 4+ (NEGATIVE) 08/26/23 23:53 Urine Ketones Negative (NEGATIVE) 08/26/23 23:53 Urine Blood Negative (NEGATIVE) 08/26/23 23:53 Urine Nitrite Negative (NEGATIVE) 08/26/23 23:53 Urine Bilirubin Negative (NEGATIVE) 08/26/23 23:53 Urine Urobilinogen Normal (NORMAL) 08/26/23 23:53 Ur Leukocyte Esterase Negative (NEGATIVE) 08/26/23 23:53 Urine RBC None seen /HPF (0-3) 08/26/23 23:53 Urine WBC 0-2 /HPF (0-5) 08/26/23 23:53 Ur Squamous Epith Cells Few /HPF (NEGATIVE) 08/26/23 23:53 Urine Bacteria Trace /HPF (NEGATIVE) 08/26/23 23:53 Hyaline Casts Few /LPF (NEGATIVE) 08/26/23 23:53 Urine Mucus Rare /HPF (NEGATIVE) 08/26/23 23:53 Ur Culture Indicated? No/not indicated 08/26/23 23:53 Resp Viral Panel (PCR) See scanned report 08/26/23 16:41 Plan (1) COPD exacerbation: Status: Acute Plan: CONTINUE IV HYDRATION, IV ANTIBIOTICS, IV SOLUMEDROL, RESPIRATORY THERAPY, SUPPLEMENTAL 02 PRN, BLOOD PRESSURE/BLOOD SUGAR CONTROL. PLAN FOR REPEAT AM LABS AND CHEST XRAY. (2) Acute bronchitis: Status: Acute Qualifiers: Bronchitis organism: unspecified organism Qualified Code(s): J20.9 - Acute bronchitis, unspecified (3) Hypomagnesemia: Status: Acute (4) HTN (hypertension): Status: Chronic Qualifiers: Hypertension type: primary hypertension Qualified Code(s): I10 - Essential (primary) hypertension (5) Diabetes mellitus: Status: Chronic Qualifiers: Diabetes mellitus complication status: with hyperglycemia Diabetes mellitus type: type 2 (6) Hypothyroidism: Status: Chronic Qualifiers: Hypothyroidism type: acquired Qualified Code(s): E03.9 - Hypothyroidism, unspecified
== END 2023-08-31 12:00 | disposition home or self-care (01) | DRG 190 ==
LOC: MED/SURG → EDBD → OBSVTOIN 15:52
PROVIDERS: ADMIT Internal Medicine; ATTEND Internal Medicine
DX: B97.81 Human metapneumovirus as the cause of diseases classified elsewhere; B97.89 Other viral agents as the cause of diseases classified elsewhere; E03.8 Other specified hypothyroidism; U07.1 COVID-19; E11.65 Type 2 diabetes mellitus with hyperglycemia; J44.1 Chronic obstructive pulmonary disease with (acute) exacerbation; F41.8 Other specified anxiety disorders; E83.42 Hypomagnesemia; R09.02 Hypoxemia; J20.8 Acute bronchitis due to other specified organisms; R06.02 Shortness of breath